=== PATIENT | male | born 1935 | race Caucasian/White ===

== ENCOUNTER 2016-03-19 04:41 | Emergency (ER) | payer MEDICARE ==
[~2016-03-19] VITALS: Ht 182.9 cm; Wt 81.6 kg
[2016-03-19 06:49] VITALS: BP 128/72
== END 2016-03-19 06:50 | disposition home or self-care (01) ==
LOC: ER 04:43
DX: F43.0 Acute stress reaction (principal)
CPT/HCPCS: 99283; A4606; Z7610